=== PATIENT | female | born 1960 | race Caucasian/White ===

== ENCOUNTER 2020-04-27 06:53 | Outpatient (NON) | payer BC, SELFPAY ==
[2020-04-28 01:47] LABS: SARS-CoV-2 RNA PCR Positive
== END 2020-04-27 06:54 ==
PROVIDERS: PCP Family Medicine; Visit Provider Physician Assistant Medical
DX: U07.1 COVID-19 (principal)
CPT/HCPCS: 87635; C9803; U0003

== ENCOUNTER 2020-09-14 06:35 | Outpatient (CLI) | payer BC, SELFPAY ==
--- NOTE | 2020-09-14 07:05 | ECG_ITS ---
Measurements Intervals [place] Rate: 63 P: 39 [place]: 180 QRS: 42 QRSD: 94 T: 31 QT: 396 QTc: 405 Interpretive Statements SINUS RHYTHM BASELINE ARTIFACT- V4 NORMAL ECG Electronically Signed On 09-14-2020 8:36:50 CDT by Nando Beltran D.O.
--- NOTE | 2020-09-14 07:05 | ECHO_ITS ---
Patient Info Name: Argenis Heard Age: 60 years : 1960 Gender: Female Ht: 62 in Wt: 201 lbs BSA: 2.04 m2 HR: 59 bpm BP: 187 / 101 mmHg Technical Quality: Good Exam Date: 09/14/2020 7:20 AM Exam Location: [facility] Patient Status: Outpatient Admit Date: 09/14/2020 Staff Ordering Physician: Svetlana Tucker State Appellate Clerk: Lucien Bruce RDCS, RT Attending Provider: Svetlana Tucker Referring Physician: Garrett MANJARREZ; Exam Type: CA echo doppler color flow Study Info Indications I50.9 - Heart failure, unspecified Complete two-dimensional, color flow and Doppler transthoracic echocardiogram is performed. Strain analysis performed. Summary 1. Complete two-dimensional, color flow and Doppler transthoracic echocardiogram is performed. 2. Left ventricular chamber dimension is normal. 3. Left ventricular systolic function is normal, estimated at 65-70%. 4. The left ventricular diastolic function is grade I diastolic dysfunction. 5. E/e' 9 is minimally elevated. 6. Global longitudinal strain is mildly abnormal at -16.4%. 7. Left atrial chamber dimension is mildly enlarged. Left Ventricle E/e' 9 is minimally elevated. Global longitudinal strain is mildly abnormal at -16.4%. Left ventricular chamber dimension is normal. Left ventricular systolic function is normal, estimated at 65-70%. The left ventricular diastolic function is grade I diastolic dysfunction. Right Ventricle Right ventricular chamber dimension is normal. Right ventricular systolic function is normal. Left Atria Left atrial chamber dimension is mildly enlarged. Right Atria Right atrial chamber dimension is normal. Aortic Valve The aortic valve is trileaflet. There is no aortic valve stenosis. There is no aortic valve regurgitation. Pulmonic Valve There is no pulmonic regurgitation. Mitral Valve There is no mitral valve stenosis. There is no mitral valve regurgitation. Tricuspid Valve There is no tricuspid valve regurgitation. Pericardium/Pleural There is no pericardial effusion. Inferior Vena Cava Normal inferior vena cava with >50% collapse upon inspiration consistent with normal right atrial pressure, 5 mmHg. Aorta The aortic root size at the sinus of Valsalva is normal. Left Ventricular Outflow Tract Name Value Normal LVOT 2D LVOT Diameter 1.9 cm LVOT Doppler LVOT Peak Gradient 3 mmHg LVOT Mean Gradient 2 mmHg LVOT VTI 23 cm LVOT VTI/AV VTI Ratio 0.8 LVOT Stroke Volume 68 ml LVOT CO 4.0 l/min LVOT CI 2.0 l/min/m2 Mitral Valve Name Value Normal MV Doppler MV Decel [place] 401 cm/s2
== END 2020-09-14 06:36 | disposition home or self-care (01) ==
PROVIDERS: PCP Family Medicine; Visit Provider Nurse Practitioner Family
DX: R00.2 Palpitations (principal); I10 Essential (primary) hypertension
CPT/HCPCS: 93005; 93306

== ENCOUNTER 2020-09-21 09:01 | Outpatient (CLI) | payer BC, SELFPAY ==
--- NOTE | ~2020-09-21 | NM_ITS ---
EXAMINATION: NM marychuy stress w perfusion DATE: 09/21/2020 11:14 INDICATION: Palpitations. TECHNIQUE: Rest images were obtained following intravenous administration of 10.9 mCi Tc99m tetrofosm in (Myoview). The patient was infused intravenously with Lexiscan (regadenoson). Then, 32.5 mCi Tc99m tetrofosmin (Myoview) was administered intravenously, and stress images were obtained. Data was mary jane nstructed into short axis and horizontal and vertical long axis SPECT images. Gated SPECT images were also obtained. COMPARISON: None. FINDINGS: There is no definite reversible or fixed perfusion abnormality to suggest ischemia or infar ction. There is no segmental wall motion abnormality. Left ventricular ejection fraction measures > 70%. IMPRESSION: 1. No definite ischemia or infarct. 2. Normal left ventricular ejection fraction measuring >70%. Reviewed, dictated and finalized at location B.
--- NOTE | 2020-09-21 09:51 | EST_ITS ---
Patient Info Name: Argenis Heard Age: 60 years : 1960 Gender: Female Ht: 62 in Wt: 200 lbs BSA: 2.04 m2 HR: 61 bpm BP: 131 / 67 mmHg Heart Rhythm: Sinus Rhythm Exam Date: 09/21/2020 10:11 AM Exam Location: [facility] Stress Patient Status: Outpatient Admit Date: 09/21/2020 Staff Ordering Physician: Svetlana Tucker Attending Provider: Exercise Technologist: Juliana Wilde CT Exercise Physician: Nando Beltran DO Exam Type: CA stress marychuy w NM Study Info Indications R00.2 - Palpitations A regadenoson stress test was performed. Summary 1. 1. Negative lexiscan stress test for ischemic ST changes by ECG criteria. 2. 2. Stable hemodynamics throughout the test. 3. 3. Nuclear scan to follow and will be reported separately. Please correlate with it. 4. 4. Patient informed of the above results. Protocol: Lexiscan Stress ECG Details Stage: REST Duration (min): 1 min : 22 sec HR (bpm): 63 SBP (mmHg): 131 DBP (mmHg): 67 Stage: REST Duration (min): 4 min : 51 sec HR (bpm): 60 SBP (mmHg): 131 DBP (mmHg): 67 Stage: STAGE 1 Duration (min): 1 min : 0 sec HR (bpm): 90 SBP (mmHg): 142 DBP (mmHg): 84 Stage: RECOVERY Duration (min): 1 min : 0 sec HR (bpm): 103 SBP (mmHg): 142 DBP (mmHg): 84 Stage: RECOVERY Duration (min): 2 min : 0 sec HR (bpm): 93 SBP (mmHg): 142 DBP (mmHg): 84 Stage: RECOVERY Duration (min): 3 min : 0 sec HR (bpm): 83 SBP (mmHg): 153 DBP (mmHg): 79 Stage: RECOVERY Duration (min): 3 min : 13 sec HR (bpm): 79 SBP (mmHg): 153 DBP (mmHg): 79 Rest HR: 60 bpm Peak HR: 104 bpm Rest Sys BP: 131 mmHg Peak Sys BP: 153 mmHg Max Pred HR: 159 bpm % Max Pred HR: 65 % Target HR: 135 bpm Max RPP: 15,912 bpm*mmHg Termination Reason: Completed protocol Cardiac Symptoms: Shortness of breath Total Time: 1 min : 0 sec Rest Leone BP: 67 mmHg Peak Leone BP: 79 mmHg Total Dose: 0.4 mg Resting ECG Sinus rhythm. Stress ECG No ST changes. Arrhythmias None. Report Signatures
== END 2020-09-21 09:02 | disposition home or self-care (01) ==
LOC: ANHCARD 09:02
PROVIDERS: PCP Family Medicine; Visit Provider Nurse Practitioner Family
DX: R00.2 Palpitations (principal)
CPT/HCPCS: 78452; 93017; A9502; J2785

== ENCOUNTER 2020-10-19 13:46 | Outpatient (CLI) | payer BC, SELFPAY ==
--- NOTE | ~2020-10-19 | XR_ITS ---
XR knee LT min 4V DATE: 10/19/2020 14:05 INDICATION: Left knee pain TECHNIQUE: 4 views COMPARISON: None FINDINGS: There is medial compartment joint replacement. There is lateral compartment chondrocalcinosis but lateral joint space is well preserved. There is periarticular spurring at the patellofemoral joint. No fracture or dislocation, periosteal reaction or bone destruction is detected. There is evidence o f a small suprapatellar joint effusion. 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
== END 2020-10-19 13:47 | disposition home or self-care (01) ==
PROVIDERS: PCP Family Medicine; Visit Provider Nurse Practitioner Family
DX: M17.12 Unilateral primary osteoarthritis, left knee (principal); M25.462 Effusion, left knee
CPT/HCPCS: 73564

== ENCOUNTER 2022-01-08 09:00 | Outpatient (CLI) | payer BC, SELFPAY ==
--- NOTE | 2022-01-28 19:23 | WPDHOMESLEEP ---
Sleep Study - Home Unattended Date of Study: 01/08/22 Ordering Provider: Calvin Joyner MD Interpreting Provider: Janet Campbell, DO Home Sleep Study Type: Apnea Link Air Height: 1.57 m Weight: 85.275 kg Body Mass Index: 34.4 Neck Circumference (inches): 14.5 [place]: 19 Reason for Sleep Study Daytime hypersomnia, multiple nighttime awakenings Sleep History The patient is a 61 y/o female with hypertension, GERD and insomnia that had a sleep study ordered by her primary care physician for evaluation of sleep apnea. The patient is a implementation project coordinator trade. She denies awakening from sleep short of breath. She denies awakening at night with heartburn, belching or cough. She denies snoring loudly enough others complain. She denies having trouble sleeping when she has a cold. She denies waking up gasping for air throughout the night. She denies having breathing problems at night observed by herself or others. She denies sweating excessively at night. She occasionally has heart palpitations or irregular heartbeats during the night. She occasionally falls asleep during the day but rarely while driving. She denies sleep paralysis and hypnagogic / hypnopompic hallucinations. She constantly has trouble at school or work due to sleepiness. She denies feeling afraid going to sleep. He rarely has nightmares. She occasionally remembers her dreams. She occasionally has thoughts racing through her mind. She frequently feels sad or depressed. She occasionally has anxiety. She occasionally has muscular tension. She rarely notices parts of her body jerk. She rarely kicks during the night. She frequently has crawling and aching feelings in her legs and constantly has leg pain during the night. She denies grinding her teeth during sleep and denies awakening with morning jaw pain. She is constantly bothered by pain during the day and constantly awakened by pain during the night. She frequently wakes up feeling stiff in the morning. She occasionally wakes up with sore achy muscles. She occasionally wakes up with pain in the neck, spine or other joints. The patient goes to bed at 9:00 p.m. on weekdays and 9:30 p.m. on the weekends. She is able to fall asleep relatively quickly. She wakes up 4-5 times throughout the night for unknown reasons. When she awakens, she will toss and turn and if she is unable to fall asleep within 45 minutes she will get up and read. She can fall asleep within 1 minute to 3 hours. She wakes up at 4:50 a.m. on weekdays and at 5:30 a.m. on weekends. She will stay in bed for 30 minutes after waking up in the morning. She currently lives with her . She does not consume any caffeinated beverages within 2 hours of bedtime. She does not engage in physical exercise before bedtime. She will read before falling asleep. She will occasionally watch television before falling asleep. She will occasionally take naps in the afternoon or the evening and they are sometimes refreshing. She drinks 3 cups of coffee and 1 energy drink per day. She will drink alcohol occasionally. She denies tobacco and recreational drug use. [facility] Past Medical History Medical History BMI 36.0-36.9,adult BMI greater than 30 COVID-19 History of ankle fracture (~2001) Insomnia Knee pain Left knee pain Osteoarthritis of knees, bilateral Sinus drainage Surgical History Surgical History History of bilateral knee replacement (~2013) History of carpal tunnel surgery (~2005) History of hysterectomy (~1996) Family History Family History Grandparent Family history of malignant neoplasm of stomach Family history of malignant neoplasm of uterus Father Family history of throat cancer Mother Hypertension Family history of diabetes mellitus in first d
[2022-01-28 19:45] VITALS: BMI 34.4
== END 2022-01-09 10:58 | disposition home or self-care (01) ==
PROVIDERS: PCP Family Medicine; Visit Provider Family Medicine
DX: G47.33 Obstructive sleep apnea (adult) (pediatric) (principal); G47.10 Hypersomnia, unspecified; G47.00 Insomnia, unspecified
CPT/HCPCS: 95806

== ENCOUNTER 2022-09-01 13:14 | Outpatient (CLI) | payer BC, SELFPAY ==
--- NOTE | ~2022-09-01 | MMUS_ITS ---
EXAMINATION: MM diagnostic fryea BI w colton, US breast BI complete HISTORY: Large heart right breast mass TECHNIQUE: ML, MLO and CC 3-D tomosynthesis images of both breasts were performed and synthetic 2-D i mages were generated. CAD analysis was submitted and interpreted. Bilateral magnification views. High resolution complete bilateral breast ultrasound examination including all 4 quadrants and subareolar areas was performed. COMPARISON: 09/06/2010 bilateral screening mammogram BREAST PARENCHYMAL COMPOSITION: The breasts are heterogeneously dense, which may obscure small masses . FINDINGS: MAMMOGRAPHIC FINDINGS: There is extensive asymmetric irregular density in the upper outer right breast, with architectural d istortion and numerous pleomorphic suspicious microcalcifications, highly suggestive of malignancy. There are scattered punctate benign-appearing microcalcifications of the left breast. Possible 6 mm rounded mass in the upper mid left breast (ML Tomosynthesis image 36/66). Additional ma sses are not excluded as result of the heterogeneously dense stroma. Bilateral complete breast ultrasound examination was performed.. ULTRASOUND: Right breast: 3:00 subareolar: Septated approximately 5.2 x 2.8 x 6.7 mm cyst 9:00 3 cm from nipple: Parallel circumscribed sonolucency measuring 5.7 x 8.2 x 9.7 mm, without inter nal vascularity, consistent with cyst 9-11:00 4 cm from nipple: At least 1.5 x 2.7 x 2.7 cm irregular hypoechoic heterogeneous mass with ca lcifications in internal vascularity and shadowing, highly suggestive of malignancy. Left breast: 2:00 3 cm from nipple: 11.4 x 6.1 x 9.2 mm simple cyst with through transmission and posterior enhanc ement 3:00 3 cm from nipple: 6.4 x 4.3 x 7.1 mm cyst without internal vascularity 6:00 4 cm from nipple: Septated 4.7 x 2.7 x 5.2 mm probable cyst 11:00 subareolar: 5.4 x 4.9 x 5.5 mm cyst IMPRESSION: 1. At least 2.7 cm irregular mass with malignant calcifications, internal vascularity and posterior s hadowing at right breast 9-11:00 4 cm from the nipple, highly suggestive of malignancy 2. Ultrasound-guided biopsy is recommended BI-RADS category 5, highly suggestive of malignancy. Dr. Colmenares telephoned the mammogram and ultrasound report and ultrasound-guided biopsy recommendation o n 09/18/2022 at 1537 hours to [facility]. Reviewed, dictated and finalized at location A. IMPRESSION: 1. At least 2.7 cm irregular mass with malignant calcifications, internal vascu larity and posterior shadowing at right breast 9-11:00 4 cm from the nipple, hi ghly suggestive of malignancy 2. Ultrasound-guided biopsy is recommended BI-RADS category 5, highly suggestive of malignancy. Dr. Colmenares telephoned the mammogram and ultrasound report and ultrasound-guided b iopsy recommendation on 09/18/2022 at 1537 hours to [facility].
== END 2022-09-01 13:15 | disposition home or self-care (01) ==
LOC: ANHIMG 13:15
PROVIDERS: PCP Family Medicine; Visit Provider Physician Assistant Medical
DX: N63.10 Unspecified lump in the right breast, unspecified quadrant (principal); R92.8 Other abnormal and inconclusive findings on diagnostic imaging of breast
CPT/HCPCS: 76641; 77062; 77066; G0279

== ENCOUNTER 2022-09-18 10:07 | Outpatient (CLI) | payer BC, SELFPAY ==
--- NOTE | ~2022-09-18 | MMUS_ITS ---
EXAMINATION: US breast biopsy RT w image, MM post biopsy invasive RT DATE: 09/18/2022 11:42 (accession [id number]), 09/18/2022 11:39 (accession [id number]) INDICATION: Mass in the upper outer quadrant of the right breast. Ultrasound-guided core biopsy is re quested to evaluate for malignancy. TECHNIQUE AND FINDINGS: The risks and potential benefits of the procedure were discussed with the patient including bleeding and infection. A time out was performed. The skin of the right breast was prepared and draped in usua l sterile fashion. 1% lidocaine was used for superficial anesthesia. 1% lidocaine with epinephrine wa s used for deep anesthesia. A vacuum-assisted biopsy needle was advanced through to the outer edge of the region of interest from an inferior approach utilizing sonographic guidance. A total of five tissue core samples were obtain ed through the lesion. A tissue marker clip was then placed at the biopsy site, located near the infe rior margin of the mass. Hemostasis was achieved. A sterile bandage was applied. The patient tolerated procedure well and there was no evidence of immediate complication. The patient was given verbal instructions to return to the Emergency Department in the event of severe breast pa in or rapid breast enlargement. A two view right breast mammogram was obtained to document tissue mar ker clip placement. IMPRESSION: 1. Successful ultrasound-guided vacuum-assisted biopsy of right breast mass with tissue marker placem ent. Reviewed, dictated and finalized at location A. IMPRESSION: 1. Successful ultrasound-guided vacuum-assisted biopsy of right breast mass wit h tissue marker placement.
== END 2022-09-18 10:08 | disposition home or self-care (01) ==
PROVIDERS: PCP Family Medicine; Visit Provider Physician Assistant Medical
DX: D05.11 Intraductal carcinoma in situ of right breast (principal)
CPT/HCPCS: 19083; 88305; 88360; A4648

== ENCOUNTER 2022-10-22 14:22 | Outpatient (CLI) | payer BC, SELFPAY ==
--- NOTE | 2022-10-22 15:00 | ECHO_ITS ---
Patient Info Name: Argenis Heard Age: 62 years : 1960 Gender: Female Ht: 61 in Wt: 193 lbs BSA: 1.98 m2 HR: 65 bpm BP: 164 / 89 mmHg Heart Rhythm: Sinus Rhythm Technical Quality: Fair Exam Date: 10/22/2022 3:19 PM Exam Location: [facility] Pulmonary Patient Status: Outpatient Admit Date: 10/22/2022 Staff Ordering Physician: JonahLev DO Weblogic Developer: Anuj Perez RDCS Attending Provider: Jonah, Lev Granados DO Referring Physician: Jnoah MIRELES; Exam Type: CA echo doppler color flow Study Info Indications - R breast encounter chemo Complete two-dimensional, color flow and Doppler transthoracic echocardiogram is performed. Summary 1. Complete two-dimensional, color flow and Doppler transthoracic echocardiogram is performed. 2. Left ventricular chamber dimension is normal. 3. Left ventricular systolic function is normal, estimated at 60-65%. 4. The left ventricular diastolic function is grade I diastolic dysfunction. 5. E/e' 13 is mildly elevated. 6. Left atrial chamber dimension is moderately enlarged. 7. No pulmonary hypertension, estimated pulmonary arterial systolic pressure is 12 mmHg. Left Ventricle E/e' 13 is mildly elevated. Left ventricular chamber dimension is normal. Left ventricular systolic function is normal, estimated at 60-65%. The left ventricular diastolic function is grade I diastolic dysfunction. Right Ventricle Right ventricular systolic function is normal and with normal TAPSE 2.8 cm. Right ventricular chamber dimension is normal. Left Atria Left atrial chamber dimension is moderately enlarged. Right Atria Right atrial chamber dimension is normal. Aortic Valve The aortic valve is trileaflet. There is no aortic valve stenosis. There is no aortic valve regurgitation. Pulmonic Valve There is no pulmonic regurgitation. Mitral Valve There is no mitral valve stenosis. There is no mitral valve regurgitation. Tricuspid Valve There is no tricuspid valve regurgitation. No pulmonary hypertension, estimated pulmonary arterial systolic pressure is 12 mmHg. Pericardium/Pleural There is no pericardial effusion. Inferior Vena Cava Normal inferior vena cava with >50% collapse upon inspiration consistent with normal right atrial pressure, 5 mmHg. Aorta The aortic root size at the sinus of Valsalva is normal. Left Ventricular Outflow Tract Name Value Normal LVOT 2D LVOT Diameter 2.0 cm LVOT Doppler LVOT Peak Gradient 5 mmHg LVOT Mean Gradient 2 mmHg LVOT VTI 27 cm LVOT VTI/AV VTI Ratio 0.9 LVOT Stroke Volume 81 ml LVOT CO 3.9 l/min LVOT CI 2.0 l/min/m2 Pulmonic Valve Name Value Normal RVOT Doppler RVOT Peak Gradient 1 mmHg PV Doppler ---------
== END 2022-10-22 14:23 | disposition home or self-care (01) ==
LOC: ANHCARD 14:25
PROVIDERS: PCP Family Medicine; Visit Provider Internal Medicine Medical Oncology
DX: Z51.11 Encounter for antineoplastic chemotherapy (principal)
CPT/HCPCS: 93306

== ENCOUNTER 2024-09-16 11:55 | Outpatient (CLI) | payer MEDICARE, SELFPAY ==
--- NOTE | ~2024-09-16 | XR_ITS ---
Right Shoulder Technique: AP and scapular Y views were obtained. Clinical History: Pain Findings: No fracture or dislocation is seen. Osseous alignment is anatomic. The glenohumeral and acr omioclavicular joint spaces are preserved. Soft tissues are unremarkable. Impression: Unremarkable right shoulder radiographs. Reviewed, dictated and finalized at [facility]. Impression: Unremarkable right shoulder radiographs.
== END 2024-09-16 11:56 | disposition home or self-care (01) ==
LOC: MICIMG 11:58
PROVIDERS: PCP Physician Assistant Medical; Visit Provider Physician Assistant Medical
DX: M25.511 Pain in right shoulder (principal); G89.29 Other chronic pain
CPT/HCPCS: 73030

== ENCOUNTER 2024-11-24 13:28 | Outpatient (CLI) | payer MEDICARE, SELFPAY ==
--- NOTE | ~2024-11-24 | DEXA_ITS ---
Bone Density Report Name: RICHIE LAFLEUR Age: 64 Sex: Female Ethnicity: White Date of : 1960 Indication: postmenopausal; screening for osteoporosis; hysterectomy; Referring Provider: Bee Garrett Study: Bone densitometry was performed. Exam Date: November 24, 2024 Accession number: [id number] Bone Density: Region BMD T-score Z-score Classification AP Spine(L1-L4) 1.160 1.0 2.8 Normal Femoral Neck (Left) 0.823 -0.2 1.3 Normal Total Hip (Left) 0.966 0.2 1.4 Normal Femoral Neck (Right) 0.809 -0.4 1.2 Normal Total Hip (Right) 0.951 0.1 1.3 Normal Total Hip Mean 0.959 0.2 1.4 Normal World Health Organization criteria for BMD impression classify patients as: Normal (T-score at or above -1.0), Osteopenia (T-score between -1.0 and -2.5), or Osteoporosis (T-score at or below -2.5). 10-year Fracture Risk: FRAX not reported because: All T-scores for Spine Total, Hip Total, Femoral Neck at or above -1.0 Clinical Information Provided by Patient: Has the following medical conditions: Hysterectomy Patient maximum height was 61 Menopause Age: 47 No regular weight bearing exercise Drinks caffeinated beverages Onset of menses at age 9 Number of children 3 Impression: The patient has normal bone mass. Discussion: BONE DENSITY IS ABOVE THE MINIMUM DESIRABLE LEVEL AT ALL SKELETAL SITES TESTED. This patient?s bone mineral density is above the minimum desirable level (T-score -1.0 or better) at all sites measured. The patient should follow a healthful lifestyle (good nutrition with adequate calcium and vitamin D, and appropriate weight-bearing exercise). Follow-Up: Consider repeating this study in 5 years or sooner if there is some new clinical indication. Reported by: LASHAY on 11/24/2024 1:55:00 PM. Reviewed, dictated and finalized at location A.
== END 2024-11-24 13:29 | disposition home or self-care (01) ==
LOC: MICIMG 13:29
PROVIDERS: PCP Physician Assistant Medical; Visit Provider Physician Assistant Medical
DX: Z78.0 Asymptomatic menopausal state (principal)
CPT/HCPCS: 77080